=== PATIENT | female | born 1960 | race American Indian/Alaskan Native ===

== ENCOUNTER 2019-02-21 08:57 | Outpatient (CLI) | payer OTHER ==
--- NOTE | 2019-02-21 10:07 | XRay Report ---
BILATERAL KNEE RADIOGRAPHS, 2 VIEWS OF THE RIGHT AND 2 VIEWS OF THE LEFT. INDICATION / CLINICAL INFORMATION: PAIN IN KNEES COMPARISON: None available. FINDINGS: BONES / JOINT(S): No acute fracture or subluxation. There is degenerative change in both knees involv ing all 3 compartments. This is most prominent in the medial compartments and patellofemoral compartm ents bilaterally. SOFT TISSUES: No significant abnormality. ADDITIONAL FINDINGS: None. Signer Name: Booker Morrell MD Signed: 02/21/2019 10:02 AM Workstation Name: [id number]
== END 2019-02-21 08:58 | disposition home or self-care (01) ==
LOC: XRAY 08:57
PROVIDERS: ATTEND Internal Medicine
DX: Z02.71 Encounter for disability determination (principal); M25.561 Pain in right knee; M25.562 Pain in left knee; E78.00 Pure hypercholesterolemia, unspecified; I10 Essential (primary) hypertension; E11.9 Type 2 diabetes mellitus without complications; E66.9 Obesity, unspecified

== ENCOUNTER 2020-09-10 15:38 | Outpatient (CLI) | payer MEDICARE ==
--- NOTE | 2020-09-10 16:14 | XRay Report ---
PELVIS AND LEFT HIP RADIOGRAPHS 3 VIEWS INDICATION / CLINICAL INFORMATION: HIP PAIN M25.559 COMPARISON: None available. FINDINGS: BONES / JOINT(S): No acute fracture or subluxation. No significant arthritis. SOFT TISSUES: No significant abnormality. ADDITIONAL FINDINGS: None. Signer Name: Booker Morrell MD Signed: 09/10/2020 4:09 PM Workstation Name: [id number]
== END 2020-09-10 15:39 | disposition home or self-care (01) ==
LOC: SPVIMAG 15:38
PROVIDERS: ATTEND Family Medicine
DX: M25.559 Pain in unspecified hip (principal)

== ENCOUNTER 2020-09-27 11:26 | Outpatient (CLI) | payer MEDICARE ==
--- NOTE | 2020-10-02 09:20 | XRay Report ---
LEFT FEMUR 2 VIEW(S) INDICATION / CLINICAL INFORMATION: OSTEOARTHRITIS M17.12 COMPARISON: 02/21/19 FINDINGS: BONES / JOINT(S): No acute fracture or subluxation. Moderate left knee tricompartment degenerative ar throsis. SOFT TISSUES: No significant abnormality. ADDITIONAL FINDINGS: None. LEFT TIBIA-FIBULA 2 VIEW(S) INDICATION / CLINICAL INFORMATION: OSTEOARTHRITIS M17.12 COMPARISON: 02/21/19 FINDINGS: BONES / JOINT(S): No acute fracture or subluxation. Moderate left knee tricompartment degenerative ar throsis. Benign-appearing ossification along the proximal left fibular shaft likely related to muscul ar attachment. No change. SOFT TISSUES: No significant abnormality. ADDITIONAL FINDINGS: None. Signer Name: Rasta Skinner MD Signed: 10/02/2020 9:15 AM Workstation Name: [id number]
== END 2020-09-27 11:27 | disposition home or self-care (01) ==
LOC: SPVIMAG 11:26
PROVIDERS: ATTEND Family Medicine
DX: M17.12 Unilateral primary osteoarthritis, left knee (principal)